=== PATIENT | male | born 1975 | race Caucasian/White ===

== ENCOUNTER 2020-07-24 15:36 | Emergency (ER) | payer SELFPAY ==
--- NOTE | 2020-07-24 16:22 | Emergency Department Report ---
Suture/Staple Removal - HPI Chief Complaint: Laceration/Recheck/Suture Stated Complaint: RT INDEX FINGER INJURY Time Seen by Provider: 07/24/20 16:16 When Sutures or [place] Placed: 5-7 Days Ago Wound Location: back of head ED Review of Systems ROS: Stated complaint: RT INDEX FINGER INJURY Other details as noted in HPI Comment: All other systems reviewed and negative ED Past Medical Hx - Past Medical History Previous Medical History?: No Suture Removal Exam - Exam General: Vital signs noted. No distress. Alert and acting appropriately. Wound: No Pathologic Erythema, No Tenderness, No Drainage, No Pus, No Wound Dehiscence Other Systems: All other systems reviewed and are unremarkable. ED Course Vital Signs 07/24/20 15:55 Temperature 98.8 F Pulse Rate 89 Respiratory 18 Rate Blood Pressure 199/95 [Right] O2 Sat by Pulse 100 Oximetry ED Recheck MDM - Medical Decision Making removal of zack Critical care attestation.: If time is entered above; I have spent that time in minutes in the direct care of this critically ill patient, excluding procedure time. ED Disposition Clinical Impression: Encounter for staple removal Disposition: DC-01 TO HOME OR SELFCARE Is pt being admited?: No Does the pt Need Aspirin: No Condition: Stable Instructions: Wound Closure Removal, Care After Additional Instructions: Any concerns follow up with Primary Care provider
--- NOTE | 2020-07-24 18:20 | Emergency Department Report ---
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 Patient states that he was carrying a partition for a bathroom and that his hand got smashed between 2 partitions and he got cut by a piece of metal. He states initially there was bleeding but has since improved. He is still able to move the digit. He denies any weakness. He states he has some mild tingling. He states his last tetanus immunization was 2 to 3 years ago. No past medical history. No allergies medications. - Related Data Previous Rx's Medication Instructions Recorded Last Taken Type Naproxen [EC-Naprosyn] 500 mg PO BID PRN #14 tablet. 07/24/20 Unknown Rx cephALEXin [Keflex] 500 mg PO QID 7 Days #28 cap 07/24/20 Unknown Rx ED Review of Systems ROS: Stated complaint: RT INDEX FINGER INJURY Other details as noted in HPI Comment: All other systems reviewed and negative ED Past Medical Hx - Past Medical History Previous Medical History?: No - Medications Home Medications: Home Medications Medication Instructions Recorded Confirmed Last Taken Type Naproxen [EC-Naprosyn] 500 mg PO BID PRN #14 tablet. 07/24/20 Unknown Rx cephALEXin [Keflex] 500 mg PO QID 7 Days #28 cap 07/24/20 Unknown Rx ED Physical Exam - General Limitations: No Limitations General appearance: alert, in no apparent distress - Head Head exam: Present: atraumatic, normocephalic - Eye Eye exam: Present: normal appearance - ENT ENT exam: Present: mucous membranes moist - Respiratory Respiratory exam: Absent: respiratory distress, accessory muscle use - Extremities Exam Extremities exam: Present: other (3 cm laceration to the right dorsal and lateral index finger, u-shaped, no active bleeding, no muscle/tendon invovlement, no foreign body, neurovasculalry intact, full active ROM) - Neurological Exam Neurological exam: Present: alert, oriented X3 - Psychiatric Psychiatric exam: Present: normal affect, normal mood - Skin Skin exam: Present: warm, dry ED Course Vital Signs 07/24/20 07/24/20 15:55 20:09 Temperature 98.8 F Pulse Rate 89 Respiratory 18 Rate Blood Pressure 199/95 167/106 [Right] O2 Sat by Pulse 100 Oximetry - Laceration /Wound Repair Right Lateral Dorsal Finger Wound Location: upper extremity (right dorsal lateral index finger) Wound Length (cm): 3 Wound's Depth, Shape: irregular Wound Explored: clean Irrigated w/ Saline (ccs): 100 Betadine Prep?: Yes Volume Anesthetic (ccs): 8 (50:50 mixture, 1% lidocaine without epi and 0.5% bupvicaine) Wound Debrided: moderate Wound Repaired With: sutures Suture Size/Type: 4:0, proline Number of Sutures: 6 Layer Closure?: No Sterile Dressing Applied?: Yes Progress: Wound irrigated with saline and thoroughly scrubbed with Betadine, digital block performed for a total of 8 cc using a 50-50 mixture of 1% lidocaine without epinephrine and 0.5% bupivacaine, aspirated to make sure not in the vessel, good anesthesia achieved, Betadine prep again, sterile drapes applied, sterile gloves worn, 4-0 Prolene used for skin closure, 6 sutures placed, patient tolerated well, no complications, bleeding controlled, sterile dressing applied ED Medical Decision Making - Radiology Data Radiology results: report reviewed Ordering Physician: FARAZ BECERRA Date of Service: 07/24/20 Procedure(s): XR hand 3+V RT Accession Number(s): [id number] cc: FARAZ BECERRA Fluoro Time In Minutes: Right hand 3 views INDICATION: Right hand pain. IMPRESSION: There is a soft tissue laceration of the index finger without evidence of underlying foreign body or fracture of the index finger. Signer Name: Andi Monroy MD Signed: 07/24/2020 6:45 PM Workstation Name: [id number] Transcribed By: BC Dictated By: Andi Monroy MD Electronically Authenticated By: Andi Monroy MD Signed Date/Time: 07/24/201844 DD/ 44 TD/TT: - Medical Decision Making Upper Sorbian interpretation by patient's friend, patient gave consent Patient is a 44-year-old male presents emergency room complaints of a laceration to the right index finger that occurred around 2 PM today. Patient states that he was carrying a partition for a bathroom and that his hand got smashed between 2 partitions and he got cut by a piece of metal. He states initially there was bleeding but has since improved. He is still able to move the digit. He denies any weakness. He states he has some mild tingling. He states his last tetanus immunization was 2 to 3 years ago. No past medical history. No allergies medications. Vitals with elevated blood pressure, improved upon repeat, discussed elevation of blood pressure with patient, discussed the importance of primary care follow-up, discussed lifestyle modification such as exercise and low-sodium diet, discussed keeping a blood pressure log. On exam:3 cm laceration to the right dorsal and lateral index finger, u-shaped, no active bleeding, no muscle/tendon invovlement, no foreign body, neurovasculalry intact, full active ROM. XR right hand: IMPRESSION: There is a soft tissue laceration of the index finger without evidence of underlying foreign body or fracture of the index finger. Laceration thoroughly irrigated and scrubbed with Betadine and repaired per procedure note. Patient given prescription for naproxen and Keflex. Advised patient Please take medication as prescribed. Please keep area clean, dry, covered. Wash with antibacterial soap and water and pat dry. No hot tub, no pool, no soaking in water. Showering is fine. Sutures need to be removed in 10 to 14 days. Follow-up with your primary care doctor for reexamination. Return to emergency room for any new or worsening symptoms. Critical care attestation.: If time is entered above; I have spent that time in minutes in the direct care of this critically ill patient, excluding procedure time. ED Disposition Clinical Impression: Laceration of right index finger Qualifiers: Encounter type: initial encounter Damage to nail status: without damage Foreign body presence: without foreign body Qualified Code(s): S61.210A - Laceration without foreign body of right index finger without damage to nail, initial encounter Disposition: DC-01 TO HOME OR SELFCARE Is pt being admited?: No Does the pt Need Aspirin: No Condition: Stable Instructions: Sutured Wound Care, [id number] Additional Instructions: Please take medication as prescribed. Please keep area clean, dry, covered. Wash with antibacterial soap and water and pat dry. No hot tub, no pool, no soaking in water. Showering is fine. Sutures need to be removed in 10 to 14 days. Follow-up with your primary care doctor for reexamination. Return to emergency room for any new or worsening symptoms. [place] los medicamentos segn lo prescrito. Mantenga el meka limpia, seca y cubierta. Pedrito con agua y jabn antibacteriano y secar. Sin baera de hidromasaje, sin piscina, sin remojo en agua. Ducharse est hortencia. Las suturas deben retirarse en 10 a 14 castañeda. Joseph un seguimiento con naylor mdico de atencin primaria para un nuevo examen. Regrese a la yakelin de emergencias por cualquier sntoma nuevo o que empeore. Prescriptions: Naproxen [EC-Naprosyn] 500 mg PO BID PRN #14 tablet. PRN Reason: pain cephALEXin [Keflex] 500 mg PO QID 7 Days #28 cap Referrals: PRIMARY CARE,MD [Primary Care Provider] - 3-5 Days Time of Disposition: 19:59 Print Language: UKRAINIAN
--- NOTE | 2020-07-24 18:50 | XRay Report ---
Right hand 3 views INDICATION: Right hand pain. IMPRESSION: There is a soft tissue laceration of the index finger without evidence of underlying fore ign body or fracture of the index finger. Signer Name: Andi Monroy MD Signed: 07/24/2020 6:45 PM Workstation Name: [id number]
[2020-07-24] MEDS ORDERED: LIDOCAINE (1%) 10 MG/1 ML VIAL 20 ML MDV INFILTRATI ONE (19:08)
[2020-07-24] MEDS ORDERED: BUPIVACAINE/PF (0.5%) 5 MG/1 ML 10 ML VIAL INFILTRATI ONE (19:08)
[2020-07-24 20:10] VITALS: BP 167/106
== END 2020-07-24 20:30 | disposition home or self-care (01) ==
LOC: ED 15:36
DX: S61.210A Laceration without foreign body of right index finger without damage to nail, initial encounter (principal); Z79.899 Other long term (current) drug therapy; W45.8XXA Other foreign body or object entering through skin, initial encounter; Y93.89 Activity, other specified; Y92.091 Bathroom in other non-institutional residence as the place of occurrence of the external cause; Y99.8 Other external cause status